=== PATIENT | female | born 1970 | race Caucasian/White ===

== ENCOUNTER 2020-01-13 15:09 | Emergency (ER) | payer BC, SELFPAY ==
[2020-01-13 15:40] VITALS: BP 148/91; PULSE 82; RESP 17; TEMP 36.6; O2SAT 100; BMI 27.3
--- NOTE | 2020-01-13 15:56 | HMH.EDUTC ---
[facility] [place] Clinical Impression: Maxillary sinusitis Qualifiers: Chronicity: acute Recurrence: not specified as recurrent Qualified Code(s): J01.00 - Acute maxillary sinusitis, unspecified Otitis media Qualifiers: Otitis media type: suppurative Chronicity: acute Laterality: right Recurrence: not specified as recurrent Spontaneous tympanic membrane rupture: without spontaneous rupture Qualified Code(s): H66.001 - Acute suppurative otitis media without spontaneous rupture of ear drum, right ear Disposition: Home, Self-Care Condition on Discharge: Good Instructions: Sinusitis Additional Instructions: Start antibiotic patient to take as ordered for a full length of time even if you feel better. Sinus infections do not get better overnight. It may take 2-3 days to notice much improvement so be sure to use conservative measures as discussed for symptoms. Flonase 1 spray each nostril daily to help with nasal congestion, sinus and ear pressure/information Increase fluids Humidifier/vaporizer as needed Tylenol and ibuprofen as needed for fever or pain. If symptoms do not improve or get worse return or be seen in the ER Follow-up with primary care this week Prescriptions: Amoxicillin [Amoxicillin 500mg Tab] 500 mg PO BID 10 Days #20 tab Prescription Printed Referrals: Yamel Cunningham [Primary Care Provider] - Time of Disposition: 16:04 Medical Decision Making - Bull Inquiry Pt receiving controlled substance: No Vital Signs: 01/13/20 15:40 Temperature 97.8 F Temperature Source Oral Pulse Rate [Right Brachial] 82 Respiratory Rate 17 Blood Pressure [Right Arm] 148/91 H Blood Pressure Mean [Right Arm] 110 Blood Pressure Source [Right Arm] Automatic Cuff Blood Pressure Position [Right Arm] Sitting 02 Sat by Pulse Oximetry 100 Oxygen Delivery Method Room Air [facility] [place] HPI - General Chief complaint: Ear Stated complaint: right ear pain Time Seen by Provider: 01/13/20 15:56 Mode of Arrival: Ambulatory Source of Information: Patient Limitations: No Limitations Description of Symptoms (Recalled from Triage Doc. by RN): PATIENT C/O RIGHT EARACHE X 1 WEEK HEENT Symptoms (Recalled from RN notes): Yes Resp Symptoms (Recalled from RN notes): No Skin Symptoms (Recalled from RN notes): No MS Symptoms (Recalled from RN notes): No Functional Status (Recalled from RN notes): WNL - History of Present Illness Provider Complaint: 49 year old female presents to [facility] today with complaint of right ear pain for the past 1.5 weeks that has continued to worsen. She has pain on the right maxillary sinus and pain with eating. She says that this feels very similar to when she had mastoiditis 2 years ago. She had dental work done 2 weeks ago, and thought it may be related, but says pain has continued to worsen. - Related Data Home Medications Medication Instructions Recorded Confirmed Calcium Carb, Citrate/Vit D3 1 each PO DAILY 01/13/20 01/13/20 [Calcium + D3 ER Tablet] Levothyroxine Sodium 50 mcg PO DAILY 01/13/20 01/13/20 [Levothyroxine 50mcg (0.05mg) Tab] Lidocaine [Lidoderm 5% transdermal 1 patch TD DAILY 01/13/20 01/13/20 patch] Linaclotide [Linzess] 290 mcg PO DAILY 01/13/20 01/13/20 Pravastatin Sodium [Pravachol 40mg 40 mg PO HS 01/13/20 01/13/20 Tablet] Turmeric Root Extract [Turmeric] 500 mg PO DAILY 01/13/20 01/13/20 estradioL [Estradiol] 1 each TD DAILY 01/13/20 01/13/20 Previous Rx's Medication Instructions Recorded Amoxicillin [Amoxicillin 500mg Tab] 500 mg PO BID 10 Days #20 tab 01/13/20 Allergies Allergy/AdvReac Type Severity Reaction Status Date / Time No Known Allergies Allergy Verified 01/13/20 15:45 - Worker's Comp Is this a Worker's Comp case?: No [facility] History - Hepatitis A Screen Drug use history?: No High risk sexual behaviors?: No History of sexually transmitted infection?: No Currently employed?: No Childcare worker?: No Do you have indoor plumbing?: Y
[2020-01-13 16:11] VITALS: BP 148/91; PULSE 82; RESP 17; TEMP 36.6; O2SAT 100
== END 2020-01-13 16:16 | disposition home or self-care (01) ==
PROVIDERS: Emergency Provider Nurse Practitioner Family; PCP Internal Medicine
DX: J01.00 Acute maxillary sinusitis, unspecified (principal); H66.001 Acute suppurative otitis media without spontaneous rupture of ear drum, right ear
CPT/HCPCS: 96372; 99201

== ENCOUNTER → 2022-08-18 13:34 | Outpatient (CLI) | payer BC, SELFPAY ==
--- NOTE | 2022-08-18 13:38 | XR_ITS ---
FINAL REPORT CLINICAL HISTORY: foot pain FINDINGS: RIGHT FOOT 3 weight-bearing views of the right foot were obtained. There is no acute fracture or dislocation. Mild degenerative changes are greatest at the 1st MTP joint. There is a plantar calcaneal spur. Soft tissues are unremarkable. IMPRESSION: Mild degenerative change. Reviewed, Interpreted and Dictated by Tyson Dozier III, MD Transcribed by Lc Bird Authenticated and [facility]
--- NOTE | 2022-08-18 13:38 | XR_ITS ---
FINAL REPORT CLINICAL HISTORY: foot pain FINDINGS: LEFT FOOT Three weight-bearing views of the left foot demonstrate no acute fracture or dislocation. There are mild degenerative changes greatest at the great toe. There is a small posterior calcaneal spur. The soft tissues are unremarkable. IMPRESSION: Mild degenerative change. Reviewed, Interpreted and Dictated by Tyson Dozier III, MD Transcribed by Lc Bird Authenticated and [facility]
== END ==
PROVIDERS: PCP Internal Medicine; Visit Provider Podiatrist
DX: M79.672 Pain in left foot (principal); M79.671 Pain in right foot
CPT/HCPCS: 73630

== ENCOUNTER → 2022-10-26 19:20 | Outpatient (CLI) | payer BC, SELFPAY | PROVIDERS: PCP Student in an Organized Health Care Education/Training Program; Visit Provider Student in an Organized Health Care Education/Training Program | DX: S81.012A Laceration without foreign body, left knee, initial encounter (principal) | CPT/HCPCS: 87070; 87205 ==

== ENCOUNTER → 2023-05-21 12:17 | Outpatient (CLI) | payer BC, SELFPAY ==
--- NOTE | 2023-05-21 12:31 | ECG_ITS ---
APPROVED REPORT Exam: Resting ECG HR:63 bpm ECG Measurements Heart Rate 63 AXES IA 154 P 64 QRSd 88 QRS 41 QT 368 T 60 QTc 375 Conclusion SINUS RHYTHM NORMAL ECG UNCONFIRMED REPORT Electronically signed by : Arthur Rosenberg MD 05/22/2023 09:57:24
[2023-05-21 12:50] LABS: Basophils % 0.5 % (0.1-2.0); Eosinophils # 0.1 K/mm3 (0.0-0.4); Eosinophils % 1.5 % (0.1-12.0); Hematocrit 48.4 % (37.0-47.0); Hemoglobin 16.3 g/dL (12.2-16.2); Lymphocytes # 2.5 K/mm3 (0.7-4.5); Lymphocytes % 34.2 % (10-50); Mean Corpuscular HGB Conc 33.6 g/dL (31.8-35.4); Mean Corpuscular Hemoglobin 32.8 pg (27.0-31.2); Mean Corpuscular Volume 97.8 fl (81-99); Monocytes # 0.5 K/mm3 (0.1-1.0); Monocytes % 7.4 % (1.7-9.3); Neutrophils # 4.2 K/mm3 (1.8-7.8); Neutrophils % 56.4 % (37.0-80.0); Platelet Count 234 K/mm3 (142-424); Red Blood Count 4.95 M/mm3 (4.20-5.40); White Blood Count 7.4 K/mm3 (4.8-10.8)
--- NOTE | 2023-05-21 12:54 | XR_ITS ---
FINAL REPORT CLINICAL HISTORY: PRIOR SMOKER COMPARISON: None FINDINGS: Two views of the chest were obtained. The heart size and pulmonary vascularity are within normal limits. The mediastinum is normal. No acute pulmonary abnormality is identified. There is no pneumothorax. The bony thorax is intact. IMPRESSION: No active cardiopulmonary disease. Reviewed, Interpreted and Dictated by Tyson Dozier III, MD Transcribed by Mickie Cunningham Authenticated and [facility]
--- NOTE | 2023-05-21 12:54 | XR_ITS ---
FINAL REPORT CLINICAL HISTORY: foot pain, OSTEOARTHRITIS COMPARISON: 08/18/2022 FINDINGS: RIGHT FOOT: Three views of the right foot were obtained. There is no acute fracture or dislocation. There is moderate degenerative change of the first metatarsal phalangeal joint. There is mild degenerative change present elsewhere in the foot. A plantar calcaneal spur is present. There is no soft tissue abnormality. IMPRESSION: Moderate degenerative change of the first MTP joint, with mild degenerative change elsewhere in the foot. Reviewed, Interpreted and Dictated by Tyson Dozier III, MD Transcribed by Mickie Cunningham Authenticated and [facility]
[2023-05-21 13:09] LABS: Alanine Aminotransferase 27 U/L (12-78); Albumin Level 4.7 g/dl (3.5-5.0); Alkaline Phosphatase 72 U/L (38-126); Anion Gap 10.9 mEq/L (5-15); Aspartate Amino Transferase 32 U/L (14-36); Bilirubin,Total 0.4 mg/dl (0.2-1.3); Blood Urea Nitrogen 9 mg/dl (7-17); Calcium 9.1 mg/dl (8.4-10.2); Carbon Dioxide 27 mmol/L (22.0-30.0); Chloride 106 mmol/L (98-107); Estimated Glomerular Filt Rate 87 ml/min (>60); GFR (African American) 106 ML/MIN (>60); Globulin 2.3 g/dL (1.3-3.2); Glucose 74 mg/dl (74-100); Potassium 3.9 mmoL/L (3.5-5.1); Sodium 140 mmol/L (136-145)
== END ==
PROVIDERS: PCP Internal Medicine; Visit Provider Podiatrist
DX: Z01.818 Encounter for other preprocedural examination (principal); M79.671 Pain in right foot
CPT/HCPCS: 36415; 71046; 73630; 80053; 85025; 93005

== ENCOUNTER 2023-06-25 06:08 | Day surgery (SDC) | payer BC, SELFPAY ==
[2023-06-17 13:04] VITALS: BMI 26.4
[2023-06-25] VITALS (8 sets, daily range): BP systolic 122–135; BP diastolic 72–92; PULSE 68–83; RESP 14–18; TEMP 36.3–36.4; O2SAT 94–98
--- NOTE | 2023-06-25 06:49 | XR_ITS ---
FINAL REPORT CLINICAL HISTORY: preop- surgery today, 1st mpj fusion, hx of SVT, takes cholesterol medication. COMPARISON: 05/21/2023 FINDINGS: A single portable view of the chest was obtained. The heart size and pulmonary vascularity are within normal limits. The mediastinum is within normal limits. No acute pulmonary abnormality is identified. The bony thorax is intact. IMPRESSION: No active cardiopulmonary disease. Reviewed, Interpreted and Dictated by Tyson Dozier III, MD Transcribed by Teresa Thorne Authenticated and [facility]
--- NOTE | 2023-06-25 06:57 | ECG_ITS ---
APPROVED REPORT Exam: Resting ECG HR:65 bpm ECG Measurements Heart Rate 65 AXES WA 164 P 48 QRSd 97 QRS -12 QT 417 T 44 QTc 428 Conclusion SINUS RHYTHM NORMAL ECG UNCONFIRMED REPORT Electronically signed by : Arthur Rosenberg MD 06/25/2023 12:06:48
[2023-06-25 06:58] LABS: Basophils % 0.4 % (0.1-2.0); Eosinophils # 0.1 K/mm3 (0.0-0.4); Eosinophils % 1.6 % (0.1-12.0); Hematocrit 43.6 % (37.0-47.0); Lymphocytes % 26.5 % (10-50); Mean Corpuscular HGB Conc 34.3 g/dL (31.8-35.4); Mean Corpuscular Hemoglobin 33.2 pg (27.0-31.2); Mean Corpuscular Volume 96.9 fl (81-99); Mean Platelet Volume 7.8 fl (7.4-10.4); Monocytes # 0.6 K/mm3 (0.1-1.0); Monocytes % 7.8 % (1.7-9.3); Neutrophils # 4.8 K/mm3 (1.8-7.8); Neutrophils % 63.6 % (37.0-80.0); Platelet Count 255 K/mm3 (142-424); Red Cell Distribution Width 13.5 % (11.5-17.5); White Blood Count 7.6 K/mm3 (4.8-10.8)
[2023-06-25 07:11] LABS: Alanine Aminotransferase 27 U/L (12-78); Albumin Level 4.2 g/dl (3.5-5.0); Albumin/Globulin Ratio 1.7 (1.1-1.8); Alkaline Phosphatase 69 U/L (38-126); Anion Gap 7.7 mEq/L (5-15); Aspartate Amino Transferase 34 U/L (14-36); Bilirubin,Total 0.5 mg/dl (0.2-1.3); Blood Urea Nitrogen 14 mg/dl (7-17); Calcium 8.4 mg/dl (8.4-10.2); Carbon Dioxide 27 mmol/L (22.0-30.0); Chloride 106 mmol/L (98-107); Creatinine Clearance Estimated 118 mL/min (50-200); Estimated Glomerular Filt Rate 104 ml/min (>60); GFR (African American) 126 ML/MIN (>60); Globulin 2.5 g/dL (1.3-3.2); Glucose 102 mg/dl (74-100); Potassium 3.7 mmoL/L (3.5-5.1); Sodium 137 mmol/L (136-145); Total Protein,Serum 6.7 g/dl (6.3-8.2)
--- NOTE | 2023-06-25 07:22 | EXP.ANES.CKL ---
[facility] Disclaimer: The information contained in this section may have been updated after the patient was seen, as this information can be updated by other users. Medical History (Updated 06/16/23 @ 12:49 by Flaquita Pérez RN) History of hypothyroidism History of supraventricular tachycardia Surgical History (Updated 06/16/23 @ 12:49 by Flaquita Pérez RN) History of arthroscopy of right shoulder History of cardiac radiofrequency ablation (RFA) History of carpal tunnel surgery of right wrist History of esophagogastroduodenoscopy (EGD) History of hysterectomy History of tubal ligation Family History (Updated 06/16/23 @ 12:43 by Flaquita Pérez RN) Other Family history of NH (myocardial infarction) Family history of diabetes mellitus (DM) Family history of stroke Social History (Updated 06/16/23 @ 12:44 by Flaquita Pérez RN) Smoking Status: Never smoker alcohol intake: never substance use type: denies use current occupational status: employed Travel in the last 8 weeks: None [facility] Anesthesia Checklist Patient Identification Patient Identification: Arm Band, Family and Verbal (Name & ) Structural Data Admitted From: Home Planned Operative Procedure/s: Right 1st Metatarsal MPJ Fusion w/Arthrodesis & plantar fascia release Consent for Planned Operative Procedure(s) Verified: Yes Verified Documents: Surgical Consent and History and Physical NPO Status Verified Time NPO: 22:00 Chart Verification Results Verified: CBC, BMP, ECG and Chest Xray Additional verifications Patient : No Anesthesia Reactions: No Hx Blood Transfusions: No Blood Transfusion Reaction: No Cardiovascular Assessment Heart Sounds: S1 & S2 Pulse Rhythm: Irregular Peripheral Edema: No Airway Assessment Mallampati Score:: Class II (TMD < 6cm.) C-Spine Mobility Assessed: Yes (FROM) TMJ Mobility Assessed: Yes Dentition: Good Dentition (Nothing loose per pt.) Neurological Assessment Level of Consciousness: Awake, Alert, Appropriate and Follows Commands Hx Seizures: No Numbness or tingling in extremities: No Anesthesia Plan Anesthesia Risk discussed: Yes Anesthesia Plan: Verified ASA Class: III Anesthesia Type: General w/block (LMAGA w/Right popliteal block for post-op pain control)
--- NOTE | 2023-06-25 07:52 | SUR.PREOP ---
Spoke with Dr. Amaya and does not want a Covid swab.
[2023-06-25] MEDS: ONDANSETRON 4MG/2ML VIAL 4 MG IV (10:37)
--- NOTE | 2023-06-25 18:02 | P.OP_ITS ---
Date of procedure: 06/25/23 Pre-op Diagnosis:: Hallux limitus right; Osteoarthrits right first metatarsophalangeal joint; plantar fasciitis right; painful right foot. Post-op Diagnosis:: Same Procedure performed:: Arthrodesis right first metatarsophalangeal joint with plate and screws and bone matrix; also right plantar fascia release with spur filing. Surgeon:: Derek Amaya DPM COMPOUND SPECIALIST:: Other Anesthesia: GETA Estimated blood loss (mL): 5 Operative findings:: Expected; severe arthritis of great toe joint with cartilage defect over 1cm diameter and capsular thickening and severe osteophytes Operative note:: This date and time patient was deemed an appropriate surgical candidate. Preoperative discussion and signed Surgical foot and answered all questions from patient and her . Has a knee scooter for Non weightbearing at home. With informed consent signed, the patient was taken to the operating room. The patient was positioned supine. General anesthesia was induced. Tourniquet was applied to the right ankle, above the malleoli. Right Plantar fascia release/ spur revision: Attention was directed to the medial aspect of the patient's heel and a linear incision was made in line with the plantar fascial attachment using a scalpel blade. Incision was then deepened through subcutaneous tissues with blunt and sharp dissection being careful to preserve and protect vital neural and vascular structures. A tissue plane interval was then created from medial to lateral the subcutaneous fat from the plantar fascia and the plantar fascia from the intrinsic musculature above. At this point released the plantar fascia medial and central bands with Felix scissors and the release of the tension was noted. Then used a bone rasp to gently file the attachment site with minimal spurring of the heel. Irrigated with copious bouts of sterile normal saline; and then closed the wound with 2-0 Vicryl and 2-0 nylon in mattress suture technique. First Metatarsal Phalangeal Joint Arthrodesis Right foot: The effected lower extremity was prepped and draped in normal sterile fashion. Attention was directed to the 1st metatarsophalangeal joint (MPJ), where a dorsal linear incision was mapped out extending proximal from the HIPJ to proximal on the met shaft. The tourniquet was inflated at 225 mmHg. Dissection was carried thru skin and subcutaneous tissue with care taken to maintain surgical hemostasis and safely retract neurovascular structures. Dissection was then carried through deep fascia linearly over the 1st MPJ, exposing the met head. There was severe arthritic changes noted with wearing down of the cartilage on both the metatarsal head and proximal phalanx. And there was a large joint osteophyte noted which was removed. Dorsal as well as medial, lateral spurring noted. Soft tissue surrounding the first MPJ was released. A McGlamry elevator was used to pass underneath the metatarsal head releasing more of the contracture. Utilizing power instrumentation in the form of saw blade, the osteophytes were removed and some of the spurs were resected. Next utilizing reamers the base of the proximal phalanx and the metatarsal head were prepared. The remaining portion of the cartilage was removed. The subchondral plate was broken and then utilizing Bone fenestration sexual assault nurse the joint was fenestrated down to the level of good healthy cancellous bleeding bone. The wound was flushed with copious amounts of saline. V92 Bone Matrix inserted to facilitate fusion site. At this point, the joint was reduced and temporary fixation inserted. Position was checked under intra-op fluoroscopy. Aligned [place] first metatarsophalangeal plate: Held in place with [place] wires; then directed and secured an oblique screw through distal medial hallux into proximal lateral metatarsal head; then secured the plate and fixated it well using 2.7mm screws x 3 were inserted distally into the proximal phalanx. This was followed by a 3.5x28mm intra-fragmentary compression screw followed by 2 x 2.7mm screws into the metatarsal. Good apposition and position was noted. Wound was once again flushed with copious amounts of saline. The remaining portion of the bone graft was packed around the fusion site. 3-0 Vicryl was used to close deep tissue in a running fashion. Then the skin was closed with 3-0 Nylon in an interrupted mattress fashion. The tourniquet was deflated less than 120 minutes (refer to nursing note for times) and immediate hyperemic response was noted to the digits. The wounds were cleansed. Xeroform, dry sterile dressing was then applied. The patient was awoken from anesthesia and transferred to recovery with vital signs stable and neurovascular status intact. A posterior splint was applied which was well-padded utilizing soft roll and 4 inch wide Ortho-Glass material secured by a large elastic bandage. Specimen: None Materials: [place] MTP Plate 5 degree with screws; cannulated screw also for compression Discharge/Plan: D/C home today when ready and vital signs stable. Patient is to maintain dressing clean dry and intact. Ice top of foot and elevate on two pillows. NWB to the right lower extremity with forefoot offloading post op shoe and crutches. Rx for Percocet 7.5/325, Phenergan 12.5mg Obtain post op films, surgical foot, 3 views. Follow up with me in 1 week at office here in [place]. Tourniquet time (min): 100 Condition: stable Disposition: PACU Complications:: negative
--- NOTE | 2023-06-26 11:38 | EXP.ANES.II ---
[facility] Anesthesia Record Part II Anesthesia Record Part II Discharge Time: 10:36 Destination: Surgical Day Care (OP Surgery) PACU nurse assessment reviewed?: Yes Patient Condition:: Good Anesthesia Complications:: None Swallowing reflex intact?: Yes Airway Patency: Patent Cyanosis?: No Blood Pressure: 126/77 SaO2: 96 Respiratory Rate: 18 Pulse Rate: 81 Temperature: 97.4 F Mental Status: Alert & Oriented Pain level:: 0 Nausea and/or vomitting:: Nauseated Intake, IV Amount: 0 Hydration: Adequate
[2023-06-26 11:40] VITALS: BP 126/77; PULSE 81; RESP 18; TEMP 36.3; O2SAT 96
== END 2023-06-25 11:15 | disposition home or self-care (01) ==
PROVIDERS: Visit Provider Podiatrist
PROC: (CPT 28750; principal; 2023-06-25 07:30)
DX: M72.2 Plantar fascial fibromatosis (principal); M79.671 Pain in right foot; M20.5X1 Other deformities of toe(s) (acquired), right foot; M19.071 Primary osteoarthritis, right ankle and foot; M77.31 Calcaneal spur, right foot; Z79.899 Other long term (current) drug therapy
CPT/HCPCS: 28750; 28119; 71045; 80053; 85025; 93005; 96374; C1713; C1776; J2405

== ENCOUNTER 2023-08-24 15:00 | Outpatient (RCR) | payer BC, SELFPAY ==
--- NOTE | 2023-08-05 14:48 | HMH.PTOPEV ---
PT Outpatient Evaluation Rehab PT Outpatient Evaluation Start: 08/05/23 14:00 Freq: Status: Active Protocol: Document 08/05/23 14:36 LUIS (Rec: 08/05/23 14:48 LUIS [id number]) E-signed By Rodo Porter, PT Outpatient Therapy Subjective History Subjective History Patient is a 53 year old female presenting to outpatient PT with reports of R post-surgical foot/ankle pain S/P L 1st MTP arthrodesis , PF release and calcaneal bone spur excision. Sx date (6 weeks). Patient reports hx of chronic foot/ ankle pain for approx 1 year prior to surgery. Comorbidities include hx of HL , B CTR, R elbow arthroscopic sx. New diagnosis of cancer in past 12 No months? Chief Complaint Pain,Stiff,Swelling, Paresthesia Symptom Type Ache,Numbness,Tingling Symptoms Relieved By Rest/Positioning,Ice,OTC Meds Symptoms Aggravated By Standing,Physical Activity, Walking Prior Functional Limitations Standing,Walking Current Functional Limitations Housework,Standing,Squatting, Recreation Activity,Walking, Stairs,Balance Symptom Description Intermittent Level of pain today (0-10) 0 Pain scale - at its best (0-10) 0 Pain scale - at its worst (0-10) 3 Ankle/Foot Eval Gait Observation General Gait Pattern Observation Antalgic Gait,Decrease Weight Bear (R) Assistive Device Ambulation Assistive Device None Palpation Tenderness right Ankle/Foot Palpation Findings Tenderness Ankle/Foot Palpation Overall Comment about surgical incisions 2/4 ROM Ankle/Foot Dorsiflexion w/Knee Extended 4 Active Range Motion (degrees) Ankle/Foot Plantar Flexion Active Range WNL of Motion (degrees) Ankle/Foot Eversion Active Range of 19 Motion (degrees) Ankle/Foot Inversion Active Range of 29 Motion (degrees) Ankle/Foot ROM Limitations Soft Tissue Tightness Great Toe Metatarsophalangeal Extension 0 Active Range Motion (degrees) Great Toe Metatarsophalangeal Flexion 0 Active Range of Motion (degrees) MMT Ankle Dorsiflexion Strength Grade 4 Good Ankle Plantarflexion Strength Grade 4 Good Foot Eversion Strength Grade 4 Good Foot Inversion Strength Grade 4 Good Special Tests Ankle Anterior Drawer Test Negative Right Ankle Eversion Test Negative Right Ankle Posterior Drawer Test Negative Right Foot Interdigital Neuroma Test Negative Right Lower Extremity Functional Index Activities Today, do you or would you have any difficulty at all with: a.Any of your usual work, housework or A little bit of difficulty school activities b. Your usual hobbies, recreational or A little bit of difficulty sporting activities c. Getting into or out of the bath A little bit of difficulty d. Walking between rooms A little bit of difficulty e. Putting on your shoes or socks A little bit of difficulty f. Squatting A little bit of difficulty g. Lifting an object, like a bag of A little bit of difficulty groceries from the floor h. Performing light activities around A little bit of difficulty your home i. Performing heavy activities around A little bit of difficulty your home j. Getting into or out of a car A little bit of difficulty k. Walking 2 blocks A little bit of difficulty l. Walking a mile A little bit of difficulty m. Going up or down 10 stairs (about 1 A little bit of difficulty flight of stairs) n. Standing for 1 hour A little bit of difficulty o. Sitting for 1 hour A little bit of difficulty p. Running on even ground Extreme difficulty or unable to perform activity q. Running on uneven ground Extreme difficulty or unable to perform activity r. Making sharp turns while running fast Extreme difficulty or unable to perform activity s. Hopping Extreme difficulty or unable to perform activity t. Rolling over in bed No difficulty LEFI Score Lower Extremity Functional Index Score 49 Outpatient Therapy Assessment Impairments Problems/Impairmments Palpation Tenderness,Impaired Range of Motion,Impaired Strength,Impaired Gait Pattern ,Impaired Walking,Impaired Standing,Impaired Household Care,Impaired Stair Climbing, Impaired Incline Stepping, Impaired Stepping on Uneven Surface,Impaired Recreational Activities,Impaired Work Activities,Impaired Balance, Subjective C/O Pain Prognosis Rehab Potential Good Clinical Impression Consistent with Diagnosis Yes Consistent with R 1st MTP arthrodesis/PF release/sp Short Term Goals Number of Weeks 2 Decrease Subjective C/O Pain Yes: 07/24 at worst Patient to be Ind w/ HEP Yes Flat Knitter Helper Goals Number of Weeks 4-6 Decreased Palpation Tenderness Yes: 1/ Increase Range of Motion Yes: WNL Increase Strength Yes: 5/5 Increase Ability to Walk Yes: 1 hr without difficulty Increase Ability to Stand Yes: Improve Ability For Household Care Yes Improve Tolerance to Work Activities Yes Improve LEFI Score Yes: >60 Decrease Subjective C/O Pain Yes: 1 at worst Outpatient Therapy Plan of Care Treatment Plan May Include Therapeutic Exercise Including Home Yes Exercise Program Manual Therapy Techniques Yes Neuromuscular Re-education Yes Therapeutic Activities to Return to Yes Previous Functional/Work Level Gait Training Yes ADL/Self Care Education Yes Dry Needling Yes Thermal Modalities Yes Electrical Stimulation Yes Ultrasound/Phonophoresis Yes Iontophoresis Yes Orthotics/Bracing/Splinting Yes Vasopneumatic Compression Pump Yes Massage Yes Manual Lymphatic Drainage Yes Eval/Re-Eval Yes Frequency Times per week 2 Duration Number of Weeks 4-6 Addendums This patient is a candidate for social No or vocational rehab? Patient/Guardian verbally acknowledges Yes understanding of treatment program and consents to further treatment? Patient/Guardian verbally acknowledges Yes understanding of diagnosis, prognosis and goals for treatment? Eval Complexity PT Charges 31826 - Moderate Complexity Shoulder/Elbow Eval Shoulder Objective Measurements Elbow Objective Measurements PHYSICIAN CERTIFICATION: I certify the specified therapy services for Anne Parmar are required, authorized, and reviewed every 30 days.
== END 2023-08-24 16:20 | disposition home or self-care (01) ==
LOC: PT 15:00
PROVIDERS: PCP Internal Medicine; Visit Provider Podiatrist
DX: M79.671 Pain in right foot (principal); Z98.890 Other specified postprocedural states
CPT/HCPCS: 97010; 97014; 97016; 97110; 97140; 97163; 97530; 97760; G0283

== ENCOUNTER 2024-01-28 08:00 | Outpatient (RCR) | payer BC, SELFPAY | END 2024-01-28 08:05 | disposition home or self-care (01) | LOC: PT 08:00 | PROVIDERS: Visit Provider Student in an Organized Health Care Education/Training Program | DX: M54.16 Radiculopathy, lumbar region (principal) | CPT/HCPCS: 20561; 97010; 97014; 97110; 97163; 97164; G0283 ==

== ENCOUNTER 2024-02-25 09:03 | Emergency (ER) | payer BC, SELFPAY ==
[2024-02-25 09:28] VITALS: BP 159/97; PULSE 98; RESP 20; TEMP 37.2; O2SAT 99; BMI 26.9
--- NOTE | 2024-02-25 09:52 | EXP.UTC ---
Discharge Plan Disposition Patient Disposition: Home, Self-Care Condition: Good Prescriptions Prescriptions: New indomethacin 50 mg capsule 50 mg PO TID PRN (Reason: gout) Qty: 15 0RF Rx Instructions: administer with food or milk No Action estradiol 0.05 mg/24 hr patch semiweekly 1 patch transdermal ONCE fluticasone propionate 50 mcg/actuation spray,suspension 2 spray intranasal PRN levothyroxine 50 MCG tablet 50 mcg PO DAILY lidocaine 5% adhesive patch,medicated 1 patch transdermal DAILY estradiol [Vivelle-Dot] 0.075 mg/24 hr patch semiweekly 0.075 patch transdermal WEEKLY pravastatin 40 mg tablet 40 mg PO DAILY ondansetron 8 mg tablet,disintegrating 8 mg PO NEEDED PRN (Reason: Nausea) famotidine 20 mg Tablet 20 mg PO DAILY Referrals Follow up/Referrals: Anne Yoon MD [Primary Care Provider] - See instructions Activity Restrictions/Add. Instructions Additional Instructions/Restrictions: Take medication as prescribed Follow up with Dr Amaya to go over your Labs and for further treatment and evaluation Straight to ER if any life threatening symptoms Clinical Impressions Clinical Impression: Pseudogout Instructions Patient Instructions: Gout, DI for Gout Print Language Print Language: Tamazight Discharge ED Provider: Surekha Davis [facility] [place] HPI General Stated complaint: right foot swelling, no injury Mode of Arrival: Ambulatory Source of Information: Patient Time Seen by Provider: 02/25/24 09:52 Description of Symptoms (Recalled from Triage Doc. by RN): R FOOT SWELLING WHEN STANDING/WALKING. FUSION OF RIGHT GREAT TOE BACK IN JUN. BY DR. AMAYA XRAY DONE YESTERDAY, REQUESTING LAB WORK HEENT Symptoms (Recalled from RN notes): No Resp Symptoms (Recalled from RN notes): No Skin Symptoms (Recalled from RN notes): No MS Symptoms (Recalled from RN notes): Yes (RIGHT GREAT TOE SWELLING) Functional Status (Recalled from RN notes): IMPAIRED WALKING History of Present Illness Provider Complaint: Patient states that she had a fusion done in Jun and for the last few days she has been having swelling and redness in her right great toe, States she seen Podiatry and they did xray yesterday and ordered lab work but she hasnt had the lab work done yet but the xray was negative and he thinks she has gout and told her to drink some trejo juice States the swelling and redness has got better since she started drinking the trejo juice but she went to and they couldnt draw the labs so she came here to get her labs drawn for Dr Derek Amaya and get checked for gout Related Data Home Medications ?Medication ?Instructions ?Recorded ?Confirmed levothyroxine 50 mcg tablet 50 mcg PO DAILY THYROID 01/13/20 08/06/23 lidocaine 5 % topical patch 1 patch transdermal DAILY Pain 01/13/20 02/25/24 estradiol 0.05 mg/24 hr semiweekly 1 patch transdermal ONCE 07/02/23 08/06/23 transdermal patch fluticasone propionate 50 2 spray intranasal PRN 07/02/23 08/06/23 mcg/actuation nasal spray,suspension estradiol 0.075 mg/24 hr 0.075 patch transdermal WEEKLY 02/25/24 02/25/24 semiweekly transdermal patch (Sindielle-Dot) famotidine 20 mg tablet 20 mg PO DAILY 02/25/24 02/25/24 ondansetron 8 mg disintegrating 8 mg PO NEEDED PRN Nausea 02/25/24 02/25/24 tablet pravastatin 40 mg tablet 40 mg PO DAILY 02/25/24 02/25/24 Previous Rx's ?Medication ?Instructions ?Recorded indomethacin 50 mg capsule 50 mg PO TID PRN gout #15 caps 02/25/24 Allergies Allergy/AdvReac Type Severity Reaction Status Date / Time No Known Allergies Allergy Verified 08/06/23 13:12 Worker's Comp Is this a Worker's Comp case?: No [facility] Disclaimer: The information contained in this section may have been updated after the patient was seen, as this information can be updated by other users. Medical History History of hypothyroidism History of supraventricular tachycardia Surgical History History of arthroscopy of right shoulder History of cardiac radiofrequency ablation (RFA) History of carpal tunnel surgery of right wrist History of esophagogastroduodenoscopy (EGD) History of hysterectomy History of tubal ligation Family History Other Family history of NM (myocardial infarction) Family history of diabetes mellitus (DM) Family history of stroke Social History Smoking Status: Never smoker alcohol intake: never substance use type: denies use current occupational status: employed Travel in the last 8 weeks: None ROS Obtained: Yes All systems reviewed & no additional complaints except as documented and Yes Systems reviewed as appropriate & no additional complaints except as documented Constitutional Constitutional: Reports system reviewed and no additional complaints, except as documented and Reports as per HPI ENT Ears, Nose, Mouth, and Throat: Reports system reviewed and no additional complaints, except as documented and Reports as per HPI Cardiovascular Cardiovascular: Reports system reviewed and no additional complaints, except as documented and Reports as per HPI Respiratory Respiratory: Reports system reviewed and no additional complaints, except as documented and Reports as per HPI Gastrointestinal Gastrointestingal: Reports system reviewed and no additional complaints, except as documented and as per HPI Genitourinary Female Genitourinary: Reports system reviewed and no additional complaints, except as documented and Reports as per HPI Musculoskeletal Musculoskeletal: Reports system reviewed and no additional complaints, except as documented and Reports as per HPI Integumentary/Breasts Skin/Breast: Reports system reviewed and no additional complaints, except as documented, Reports as per HPI and Reports other (redness and swelling to right great toe) Physical Exam General General appearance: alert and in no apparent distress ENT ENT exam: Present mucous membranes moist Respiratory Respiratory exam: Present normal lung sounds bilaterally; Absent respiratory distress or wheezes Cardiovascular Cardiovascular exam: Present regular rate, normal rhythm and normal heart sounds Expanded Lower Extremity Exam Right: Top foot image: 1. redness, swelling and warmth Neurological Exam Neurological exam: Present alert, oriented X3 and normal gait Medical Decision Making Bull Inquiry Pt receiving controlled substance: No Bull was queried for this patient: No Vital Signs: 02/25/24 09:28 Temperature 98.9 F Temperature Source Oral Pulse Rate [Left Brachial] 98 H Respiratory Rate 20 Blood Pressure [Left Arm] 159/97 H Blood Pressure Mean [Left Arm] 117 02 Sat by Pulse Oximetry 99 Orders (Tests/Meds): ORDERS Category Date Time Status Uric Acid Stat Lab 02/25/24 09:47 Ordered Medical Decision Narrative: Patient did not want to repeat xray States that redness and swelling improved after she started trejo juice wanted something for the gout and she will follow up with Podiatry
[2024-02-25 11:10] VITALS: BP 159/97; PULSE 98; RESP 20; TEMP 37.2; O2SAT 99
== END 2024-02-25 11:13 | disposition home or self-care (01) ==
PROVIDERS: Emergency Provider Nurse Practitioner; PCP Student in an Organized Health Care Education/Training Program
DX: M10.071 Idiopathic gout, right ankle and foot (principal)
CPT/HCPCS: 99204; 99212; G0463

== ENCOUNTER 2024-02-25 09:44 | Outpatient (CLI) | payer BC, SELFPAY ==
[2024-02-25 10:17] LABS: Basophils % 0.4 % (0.1-2.0); Eosinophils # 0.1 K/mm3 (0.0-0.4); Eosinophils % 1.4 % (0.1-12.0); Hematocrit 46.4 % (37.0-47.0); Hemoglobin 14.6 g/dL (12.2-16.2); Lymphocytes # 1.4 K/mm3 (0.7-4.5); Lymphocytes % 21.4 % (10-50); Mean Corpuscular HGB Conc 31.4 g/dL (31.8-35.4); Mean Corpuscular Hemoglobin 32.5 pg (27.0-31.2); Mean Corpuscular Volume 103.3 fl (81-99); Monocytes # 0.6 K/mm3 (0.1-1.0); Monocytes % 8.8 % (1.7-9.3); Neutrophils # 4.3 K/mm3 (1.8-7.8); Platelet Count 306 K/mm3 (142-424); Red Blood Count 4.49 M/mm3 (4.20-5.40); Red Cell Distribution Width 13.3 % (11.5-17.5); White Blood Count 6.3 K/mm3 (4.8-10.8)
[2024-02-25 10:22] LABS: Albumin Level 4.5 g/dl (3.5-5.0); Chloride 106 mmol/L (98-107); Sodium 140 mmol/L (136-145)
[2024-02-25 10:23] LABS: Potassium 4.7 mmoL/L (3.5-5.1)
[2024-02-25 10:25] LABS: Alanine Aminotransferase 38 U/L (12-78); Albumin/Globulin Ratio 1.5 (1.1-1.8); Alkaline Phosphatase 67 U/L (38-126); Anion Gap 5.7 mEq/L (5-15); Aspartate Amino Transferase 41 U/L (14-36); Bilirubin,Total 0.6 mg/dl (0.2-1.3); Blood Urea Nitrogen 11 mg/dl (7-17); Carbon Dioxide 33 mmol/L (22.0-30.0); Estimated Glomerular Filt Rate 104 ml/min (>60); GFR (African American) 126 ML/MIN (>60); Globulin 3.1 g/dL (1.3-3.2); Total Protein,Serum 7.6 g/dl (6.3-8.2)
[2024-02-25 10:26] LABS: Calcium 9.4 mg/dl (8.4-10.2); Glucose 101 mg/dl (74-100)
[2024-02-25 10:41] LABS: Uric Acid 4.3 mg/dl (2.5-6.2)
[2024-02-25 10:55] LABS: Erythrocyte Sedimentation Rate 18 mm/hr (0-30)
== END 2024-02-25 23:59 | disposition home or self-care (01) ==
LOC: LAB 09:45
DX: M11.20 Other chondrocalcinosis, unspecified site (principal)
CPT/HCPCS: 80053; 84550; 85025; 85651

== ENCOUNTER 2024-04-21 15:12 | Outpatient (CLI) | payer BC, SELFPAY ==
--- NOTE | 2024-04-21 15:17 | XR_ITS ---
FINAL REPORT CLINICAL HISTORY: Foot Pain; hx of gout COMPARISON: 08/18/2022 FINDINGS: Right foot Three views were obtained. There is no fracture or dislocation. There are interval postoperative changes of fusion of the first metatarsal phalangeal joint. Mild degenerative changes are seen elsewhere in the foot. There is a plantar calcaneal spur. IMPRESSION: Interval postoperative changes. Reviewed, Interpreted and Dictated by Tyson Dozier III, MD Transcribed by Neyda Trejo Authenticated and [facility]
--- NOTE | 2024-04-21 15:17 | XR_ITS ---
FINAL REPORT CLINICAL HISTORY: Foot Pain COMPARISON: 08/18/2022 FINDINGS: Left foot Three views were obtained. There are mild degenerative changes of the first metatarsal phalangeal joint. There is deformity of the distal aspect of the fourth proximal phalanx consistent with a fracture, likely subacute or chronic. Small calcaneal spurs are identified. IMPRESSION: Likely subacute or chronic fracture of the fourth proximal phalanx. Reviewed, Interpreted and Dictated by Tyson Dozier III, MD Transcribed by Neyda Trejo Authenticated and [facility]
== END 2024-04-21 23:59 | disposition home or self-care (01) ==
LOC: RAD 15:14
PROVIDERS: PCP Student in an Organized Health Care Education/Training Program; Visit Provider Podiatrist
DX: Z98.890 Other specified postprocedural states (principal); M79.671 Pain in right foot; M79.672 Pain in left foot
CPT/HCPCS: 73630

== ENCOUNTER 2024-05-16 10:21 | Outpatient (CLI) | payer BC, SELFPAY ==
--- NOTE | 2024-05-16 10:22 | CT_ITS ---
FINAL REPORT TECHNIQUE: Thin section axial CT images with coronal and sagittal reformats were performed. 3D images were also obtained and reviewed. Coronal and sagittal reconstructions were obtained and reviewed. This study was performed with techniques to keep radiation doses as low as reasonably achievable (ALARA). Individualized dose reduction techniques using automated exposure control or adjustment of mA and/or kV according to the patient''s size were employed. CLINICAL HISTORY: Foot Pain COMPARISON: None FINDINGS: There are postoperative changes from fusion of the 1st metatarsal phalangeal joint. A screw plate and multiple screws are present. There is lucency surrounding the 2 distal screws and loosening can not be excluded. There is no acute fracture. A plantar calcaneal spur is present. There is a small subchondral cyst in the talar dome. IMPRESSION: Lucency surrounding 2 distal screws, loosening can not be excluded. Reviewed, Interpreted and Dictated by Tyson Dozier III, MD Transcribed by Teresa Thorne Authenticated and [facility]
[2024-05-16 10:55] LABS: Basophils # 0.1 K/mm3 (0-0.2); Eosinophils # 0.1 K/mm3 (0.0-0.4); Eosinophils % 1.2 % (0.1-12.0); Hematocrit 43.4 % (37.0-47.0); Hemoglobin 14.9 g/dL (12.2-16.2); Lymphocytes # 1.9 K/mm3 (0.7-4.5); Lymphocytes % 31.4 % (10-50); Mean Corpuscular HGB Conc 34.5 g/dL (31.8-35.4); Mean Corpuscular Hemoglobin 32.6 pg (27.0-31.2); Mean Corpuscular Volume 94.6 fl (81-99); Mean Platelet Volume 7.4 fl (7.4-10.4); Monocytes # 0.4 K/mm3 (0.1-1.0); Monocytes % 7.2 % (1.7-9.3); Neutrophils # 3.5 K/mm3 (1.8-7.8); Neutrophils % 59.3 % (37.0-80.0); Platelet Count 283 K/mm3 (142-424); Red Blood Count 4.59 M/mm3 (4.20-5.40); Red Cell Distribution Width 12.9 % (11.5-17.5)
[2024-05-16 11:26] LABS: Alanine Aminotransferase 24 U/L (12-78); Albumin Level 4.5 g/dl (3.5-5.0); Alkaline Phosphatase 80 U/L (38-126); Anion Gap 9.8 mEq/L (5-15); Aspartate Amino Transferase 28 U/L (14-36); Bilirubin,Total 0.6 mg/dl (0.2-1.3); Blood Urea Nitrogen 13 mg/dl (7-17); Calcium 9.5 mg/dl (8.4-10.2); Carbon Dioxide 31 mmol/L (22.0-30.0); Chloride 105 mmol/L (98-107); Estimated Glomerular Filt Rate 87 ml/min (>60); GFR (African American) 105 ML/MIN (>60); Globulin 2.2 g/dL (1.3-3.2); Glucose 100 mg/dl (74-100); Potassium 4.8 mmoL/L (3.5-5.1); Sodium 141 mmol/L (136-145); Total Protein,Serum 6.7 g/dl (6.3-8.2); Uric Acid 5.3 mg/dl (2.5-6.2)
[2024-05-16 11:31] LABS: C-Reactive Protein 1.7 mg/L (0-4)
[2024-05-16 12:45] LABS: Erythrocyte Sedimentation Rate 6 mm/hr (0-30)
[2024-05-21 15:10] LABS: Nicotine <1.0 ng/mL (.)
[2024-05-31 05:02] LABS: 1,25 Dihydroxy Vitamin D 77 pg/mL (.); 1,25-Dihydroxy, Vitamin D-2 <10 pg/mL (.); 1,25-Dihydroxy, Vitamin D-3 77 pg/mL (.)
== END 2024-05-16 23:59 | disposition home or self-care (01) ==
LOC: RAD 10:22
PROVIDERS: Nurse Practitioner; PCP Student in an Organized Health Care Education/Training Program; Visit Provider Podiatrist
DX: R60.0 Localized edema (principal); M96.0 Pseudarthrosis after fusion or arthrodesis; M79.671 Pain in right foot; T84.84XA Pain due to internal orthopedic prosthetic devices, implants and grafts, initial encounter; M11.20 Other chondrocalcinosis, unspecified site; M79.672 Pain in left foot; M19.071 Primary osteoarthritis, right ankle and foot; M20.5X1 Other deformities of toe(s) (acquired), right foot
CPT/HCPCS: 36415; 73700; 80053; 80323; 82652; 84550; 85025; 85651; 86140; G0480

== ENCOUNTER 2024-06-13 09:50 | Outpatient (CLI) | payer BC, SELFPAY ==
[2024-06-13 18:33] LABS: Human Rhinovirus Not Detected (NotDetected); Influenza A, PCR Not Detected (NotDetected); Influenza B, PCR Not Detected (NotDetected); Respiratory Syncytial Virus Not Detected (NotDetected)
[2024-06-13 20:22] LABS: Coronavirus 19, PCR Detected (NotDetected)
== END 2024-06-13 23:59 | disposition home or self-care (01) ==
LOC: LAB.DROPOF 06-15 12:37
PROVIDERS: PCP Internal Medicine; Visit Provider Internal Medicine
DX: R50.9 Fever, unspecified (principal); U07.1 COVID-19
CPT/HCPCS: 87631

== ENCOUNTER 2024-07-17 09:40 | Outpatient (CLI) | payer BC, SELFPAY ==
--- NOTE | 2024-07-17 09:47 | XR_ITS ---
FINAL REPORT CLINICAL HISTORY: Foot pain COMPARISON: 04/21/2024 FINDINGS: RIGHT FOOT 3 views of the right foot were obtained. A sideplate and screws are noted securing the first metatarsophalangeal joint. There is marked narrowing of the joint space. There is no acute fracture or dislocation. A moderate plantar spur is seen on the lateral view. Soft tissues are unremarkable. IMPRESSION: Postoperative changes without acute bony abnormality. Reviewed, Interpreted and Dictated by Vic Hull MD Transcribed by Teresa Thorne Authenticated and [facility]
== END 2024-07-17 23:59 | disposition home or self-care (01) ==
LOC: RAD 09:41
PROVIDERS: PCP Student in an Organized Health Care Education/Training Program; Visit Provider Podiatrist
DX: M79.671 Pain in right foot (principal)
CPT/HCPCS: 73630

== ENCOUNTER 2024-10-16 09:39 | Outpatient (CLI) | payer BC, SELFPAY ==
--- NOTE | 2024-10-16 09:41 | XR_ITS ---
FINAL REPORT CLINICAL HISTORY: Right 1st MPJ Non Union FX COMPARISON: 07/17/2024 FINDINGS: AP, oblique and lateral views of the right foot were obtained. There is no acute fracture or dislocation. There are postoperative changes from fusion of the first MTP joint. There is incomplete bony union. Hardware appears intact. There may be lucency surrounding the surgical screw closest at the base of the first proximal phalanx and the surgical plate. IMPRESSION: Postoperative changes from first MTP fusion with incomplete union. Lucency surrounding the surgical plate and screw at the base of the first proximal phalanx. Loosening not excluded. Reviewed, Interpreted and Dictated by Nanda Conklin MD Transcribed by Brigid Gant Authenticated and . [facility]
== END 2024-10-16 23:59 | disposition home or self-care (01) ==
LOC: RAD 09:40
PROVIDERS: PCP Student in an Organized Health Care Education/Training Program; Visit Provider Podiatrist
DX: M79.671 Pain in right foot (principal); M96.0 Pseudarthrosis after fusion or arthrodesis
CPT/HCPCS: 73630; 87102; 87206; 87220